=== PATIENT | male | born 1970 | race American Indian/Alaskan Native ===

== ENCOUNTER 2017-01-28 23:58 | Emergency (ER) | payer MEDICARE ==
[2017-01-29 00:19] VITALS: BP 198/129
[2017-01-29 01:28] LABS: Chloride 98.4 mmol/L (98-107); Potassium 3.4 mmol/L (3.6-5.0); Sodium 140 mmol/L (137-145)
[2017-01-29 01:29] LABS: Anion Gap 17 mmol/L; BUN/Creatinine Ratio 15.55; Blood Urea Nitrogen 14 mg/dL (9-20); Calcium 8.9 mg/dL (8.4-10.2); Carbon Dioxide 28 mmol/L (22-30); Glucose 119 mg/dL (75-100)
[2017-01-29 02:00] LABS: Basophils % (Auto) 0.3 % (0.0-1.8); Hematocrit 36.6 % (35.5-45.6); Hemoglobin 11.6 gm/dl (11.8-15.2); Mean Corpuscular HGB Conc 32 % (32-34); Mean Corpuscular Volume 77 fl (84-94); Platelet Count 322 K/mm3 (140-440); Red Blood Count 4.75 M/mm3 (3.65-5.03); Red Cell Distribution Width 15.2 % (13.2-15.2); White Blood Count 5.4 K/mm3 (4.5-11.0)
[2017-01-29 02:08] LABS: Mean Corpuscular Hemoglobin 25 pg (28-32)
--- NOTE | 2017-01-31 08:32 | ED Elopement Review ---
ED Pt Elopement review - Results review Lab results: Laboratory Tests 01/29/17 01/29/17 01/29/17 00:57 00:57 03:21 WBC 5.4 RBC 4.75 Hgb 11.6 L Hct 36.6 MCV 77 L MCH 25 L MCHC 32 RDW 15.2 Plt Count 322 Lymph % (Auto) 27.6 [place] % (Auto) 10.5 H Eos % (Auto) 2.0 Baso % (Auto) 0.3 Lymph # 1.5 Kemper # 0.6 Eos # 0.1 Baso # 0.0 Seg Neutrophils % 59.6 Seg Neutrophils # 3.2 Sodium 140 Potassium 3.4 L Chloride 98.4 Carbon Dioxide 28 Anion Gap 17 BUN 14 Creatinine 0.9 Estimated GFR > 60 BUN/Creatinine Ratio 15.55 Glucose 119 H Calcium 8.9 Troponin T < 0.010 < 0.010 01/29/17 06:23 WBC RBC Hgb Hct MCV MCH MCHC RDW Plt Count Lymph % (Auto) [place] % (Auto) Eos % (Auto) Baso % (Auto) Lymph # Kem[place] # Eos # Baso # Seg Neutrophils % Seg Neutrophils # Sodium Potassium Chloride Carbon Dioxide Anion Gap BUN Creatinine Estimated GFR BUN/Creatinine Ratio Glucose Calcium Troponin T < 0.010 - Call Back decision Pt Call Back Decision: Pt to F/U with PMD (elevated bp needs assement and treatment, if sx continue may return for eval)
== END 2017-01-29 09:45 | disposition left against medical advice (07) ==
LOC: ED 23:58
DX: R51 Headache (principal); Z53.21 Procedure and treatment not carried out due to patient leaving prior to being seen by health care provider
CPT/HCPCS: 36415; 80048; 84484; 85025; 93005; 93010

== ENCOUNTER 2017-10-22 10:16 | Outpatient (CLI) | payer MEDICARE ==
--- NOTE | 2017-10-23 10:36 | Nuclear Medicine Report ---
BONE SCAN: History: Pain in right hip. Comparison: No recent comparison at this facility. After injection of isotope, gamma camera imaging of the bony system was done. There is physiologic renal, soft tissue and bony uptake. Photopenic defects are identified in both hips consistent with bilateral hip replacements. There appears to be minimal radiotracer uptake along the distal tip of the femoral prosthesis on both sides. This is slightly more pronounced on the right. There is no intense uptake surrounding the prostheses to suggest definite infection or loosening. Consider radiographic correlation of both hips. Mild degenerative uptake is noted in the shoulders, knees and feet. No metastatic pattern or fracture is identified. There is moderate uptake in the maxillary ridge which is probably related to periodontal disease. IMPRESSION: Degenerative changes. Bilateral hip replacements are identified with minimal radiotracer accumulation as described above, right greater than left. I see no convincing findings for loosening or infection. No metastatic pattern or acute fracture identified.
== END 2017-10-22 10:17 | disposition home or self-care (01) ==
LOC: NM 10:16
PROVIDERS: ATTEND Orthopaedic Surgery
DX: M16.0 Bilateral primary osteoarthritis of hip (principal); Z96.643 Presence of artificial hip joint, bilateral
CPT/HCPCS: 78306; A9503